=== PATIENT | male | born 1970 | race Caucasian/White ===

== ENCOUNTER 2021-07-07 11:51 | Emergency (ER) | payer OTHER ==
[~2021-07-07 11:51] MED LIST: AZITHROMYCIN250 MG PO; CEFDINIR300 MG PO; IBUPROFEN800 MG PO; MEDROL 4MG DOSEP4 MG PO; ROBITUSSIN W/COD5 ML PO; TESSALON PERLE100 MG PO; ZPAK PO
[2021-07-07 14:41] LABS: ALBUMIN 3.7 g/dL (3.4-5.0); BILIRUBIN - TOTAL 0.4 mg/dL (0.2-1.0); BUN/CREAT RATIO (CALC) 19.2 RATIO; CREATININE 0.73 mg/dL (0.67-1.17); GLOBULIN (CALCULATION) 3.7 g/dL; POTASSIUM 4.3 mmol/L (3.5-5.1); TOTAL PROTEIN 7.4 g/dL (6.4-8.2)
[2021-07-07 15:21] LABS: BASOPHIL 0.7 % (0-2); EOSINOPHIL 0.3 % (0-5); LYMPHOCYTE 12.4 % (15-48); MCH 30.7 pg (25.0-31.0); MCHC 33.3 g/dL (32.0-36.0); MPV 11.9 fL (6.0-9.5); NRBC 0; PLT 209 K/uL (150-400); RBC 5.22 M/uL (4.70-6.00); RDW 13.5 % (11.5-14.0); WBC 11.1 K/uL (4.0-10.5)
[2021-07-07] MEDS ORDERED: CLARITIN-D 121 EACH PO (16:23)
== END 2021-07-07 16:43 | disposition home or self-care (01) ==
LOC: FER 11:51
PROVIDERS: Internal Medicine
DX: H83.01 Labyrinthitis, right ear (principal); Z88.8 Allergy status to other drugs, medicaments and biological substances
CPT/HCPCS: 36415; 80053; 84484; 85025; 93005